=== PATIENT | male | born 1955 | race Caucasian/White ===

== ENCOUNTER → 2025-02-18 13:06 | Outpatient (CLI) | payer OTHER, SELFPAY ==
--- NOTE | 2025-02-18 13:09 | DI.NM.S_ITS ---
PROCEDURE: NM ROSS PERF SPECT REST & STR Rest and exercise myocardial perfusion SPECT with gated imaging and ejection fraction RADIOPHARMACEUTICAL: 26.1 mCi Tc-99m sestamibi IV at rest and 26.4 mCi Tc-99m sestamibi IV at peak exercise. A two day-protocol was performed. INDICATIONS: ATRIAL FLUTTER,AVNRT TECHNIQUE: Radiopharmaceutical was injected at peak stress test, and also at rest. SPECT images were obtained. SPECT myocardial perfusion images were displayed in short axis, horizontal long axis, and vertical long axis views. Gated images were reviewed using [employer] software. COMPARISON: None. CARDIAC STRESS: A standard Jamin treadmill exercise tolerance test was performed by the patient under the supervision of an attending staff. The patient exercised for 6 minutes and 0 seconds; functional aerobic impairment (MANUEL) is +9%. Hemodynamic data: There is normal heart rate response to exercise stress. Patient achieved between 85 and 90% of maximum predicted heart rate at peak exercise. Hypertension at rest (BP 158/88mmHg) and hypertensive response to exercise (BP 210/90mmHg). Symptoms: Patient denied chest pain during exercise. EKG: Mild to moderate horizontal ST depressions in the anterolateral leads during recovery; rare PVCs present. FINDINGS: Raw data: There is good myocardial labeling by radiotracer. No significant motion artifacts. Ciyl-pl-vwjqj ratio is 0.26 (normal is less than 0.38 for sestamibi tracer, and less than 0.50 for thallium tracer). Left ventricle function: Gated images demonstrate normal left ventricle wall thickening. No segmental wall motion abnormality. No transient ischemic dilation; TID is 1 (normal less than 1.3). The left ventricle resting end-diastolic volume is 158 mL. Left ventricle stress ejection fraction is 63%; normal values are above 45%. Myocardial perfusion: There is a mildly to moderately intense fixed inferior wall defect that may be old prior non-transmural infarction or diaphragmatic attenuation. No prone imaging available. SSS 1. IMPRESSION: Abnormal nuclear stress test consistent with prior infarction or artifact. No significant ischemia. 1) There is a mildly to moderately intense fixed inferior wall defect that may be old prior non-transmural infarction or diaphragmatic attenuation. No prone imaging available. SSS 1. 2) Enlarged left ventricle (LVEDV 158cc) with normal wall motion and normal systolic function (EF 63% post stress). 3) No angina during the study. 4) Mild to moderate horizontal ST depressions in the anterolateral leads during recovery. 5) Mildly reduced exercise tolerance (7METs, MANUEL +9%). Target heart rate reached. 6) Hypertension at rest (BP 158/88mmHg) and hypertensive response to exercise (BP 210/90mmHg). 7) No prior nuclear stress test available for comparison. Dictated by: Ranjana Torres MD on 02/19/2025 at 13:51 Approved by: Ranjana Torres MD on 02/19/2025 at 13:58
== END ==
PROVIDERS: PCP Nurse Practitioner Family; Referring Provider Internal Medicine Cardiovascular Disease; Visit Provider Internal Medicine Cardiovascular Disease
DX: I48.3 Typical atrial flutter (principal); I47.19 Other supraventricular tachycardia; R94.39 Abnormal result of other cardiovascular function study
CPT/HCPCS: 78452; 93017; A9502